=== PATIENT | male | born 1935 | race Caucasian/White ===

== ENCOUNTER 2023-05-10 17:57 | Emergency (ER) | payer OTHER, SELFPAY ==
[2023-05-10 18:01] VITALS: BP 138/76
--- NOTE | 2023-05-10 18:47 | ED.GENMED ---
History of Present Illness
General
Chief Complaint: Skin Surface Trauma
Source: patient, spouse and family
Time Seen by Provider: 05/10/23 18:10
Travel History
Have you had any contact with someone who has COVID-19?: No
Do you have any symptoms of coronavirus? Fever > 100 degrees, chills, cough, shortness of breath, sore throat, loss of taste or smell, muscle aches, or headache?: No
History of Present Illness
History of Present Illness:
88-year-old male presenting to the emergency department for evaluation after he was walking outside and excellently tripped on a curb falling onto his right arm and striking the right side of his head on the ground. Patient sustained multiple skin
tears to the right arm and hand as well as a small abrasion to the right temporal region there was no reported loss consciousness, vomiting, visual changes or any other injury sustained. Patient was able to ambulate following the fall. Patient
does not use any anticoagulants. Unknown last tetanus vaccine.
Past History
Past History
ED Past Medical History: Other ([place], Dementia)
ED Past Surgical History: Cardiac (Aortic bypass 1994) and Other (Hernia, Aortic bypass, Partial Thyroidectomy)
Social History
Tobacco: Former smoker
Alcohol: None
Drug: None
Personal:
Living: with family
Employment: Retired
Review of Systems
Review of Systems
All Other Systems: ROS reviewed and negative except as documented in HPI and ROS
Phy Exam
Physical Exam
Physical Exam:
GENERAL: Alert , in no apparent distress
EYE: conjunctiva clear
Head: See skin exam
NECK: Supple, no midline tenderness
ENT: mmm.
LUNGS: no acute respiratory distress
NEUROLOGICAL: Alert and oriented
SKIN: Warm and dry, multiple skin tears along the right forearm with the largest being the most proximal area measuring approximately 6 cm in size, curvilinear, mild oozing but no active bleeding. 2 cm skin tear mid forearm with inability to
approximate the skin edges, 1-1/2 cm skin tear along the ulnar surface/hypothenar eminence of the hand with skin edges mostly approximated. There is also a V shaped skin tear right temporal region without any active bleeding measuring approximately
7 mm in size
MUSCULOSKELETAL: well perfused.
PSYCH: Normal and appropriate interaction.
Scores
Heart Failure Risk
Heart Failure Risk Score: Not Applicable
Heart Score for Chest Pain Patients
STEMI patient?: Not applicable
Withdrawal Assessment of Alcohol
Withdrawal Assessment Completed?: Not applicable
Course
Orders/Labs/Results
Orders:
Orders
05/10/23 18:15
CT Head W/o Iv Contrast Urgent
Comment:
Reason For Exam: fall, head strike
05/10/23 18:16
Tetanus/Diphth/Acelpertussis [Adacel] 0.5 ml IM .ONCE ONE
05/10/23 19:00
CR Forearm - Right 2 View Urgent
Comment:
Reason For Exam: fall, multiple skin tears
Vital Signs
Initial and Last Documented VS:
Initial Vital Signs
Pulse Resp BP Pulse Ox
72 18 138/76 100
05/10/23 18:01 05/10/23 18:01 05/10/23 18:01 05/10/23 18:01
Last Documented Vital Signs
Pulse Resp BP Pulse Ox
72 18 138/76 100
05/10/23 18:01 05/10/23 18:01 05/10/23 18:01 05/10/23 18:01
Procedures
Laceration Closure
Right Forearm:
Status of Wound: clean
Size of Wound in cm: 9
Description of Wound Edges: sharp, surrounded by abrasion and macerated
Preparation: cleaned with saline
Revision/Debridement: minor revision
Type of Closure: Dermabond-skin glue and other (steri-strips)
Additional information:
Total length of all wounds measured approximately 9 cm
MDM/Problems Addressed
Differential Diagnosis Includes:
Accidental trip and fall, multiple skin tears, intracranial bleeding, calvarial fracture
MDM/Problems Addressed:
88-year-old male presenting emergency department for evaluation following an accidental trip and fall approximately 30 minutes prior to arrival to the emergency department. Skin tears will require repair with Steri-Strips and Dermabond. Will
obtain CT scan of the head given the reported head trauma. Will also order x-ray at the request of family of the right forearm. Will update tetanus. Anticipate discharge home pending imaging studies.
*Radiology
Radiology exam reviewed: preliminary read by ED provider (No fracture of the right forearm) and radiology read reviewed
*Pulse Oximetry
Patient hypoxic: no
*Critical Care Note
Total Time (30-74mins, 75-104mins- exclusive of procedures): Not Applicable
Patient Management
Escalation/DeEscalation of care consider admission/obs:
Patient's imaging is unremarkable for any acute pathologies. They were provided with information for wound care center. Aware of return precautions emergency department. Otherwise stable for discharge home.
ED Attending Note
-
Portions of this chart may have been created with voice recognition software.� Occasional wrong word or��sound alike� substitutions may have occurred due to the inherent limitations of voice recognition software.
Discharge Plan
Departure
Patient Disposition: Home (Routine Discharge)
Date of Disposition: 05/10/23
Time of Disposition: 20:00
Patient with high blood pressure during this ER visit?: No
Discharge Problem:
Accidental fall, Skin tear of right forearm without complication, skin tear face
Instructions: [facility]
Prescriptions:
No Action
simvastatin 40 MG tablet
40 mg PO DAILY
doxazosin 2 MG tablet
2 mg PO DAILY
silodosin [Rapaflo] 8 MG capsule
8 mg PO DAILY
Ibuprofen
3 tab PO PRN (Reason: pain)
Referrals:
[facility] [Outside]
Hany Servin MD [Family Provider] -
Interventions
Interventions:
*Risk Screen - Suicide Last Done: 05/10/23 19:29
*General Assessment Last Done: 05/10/23 19:29
*Neglect/Abuse Screening Last Done: 05/10/23 19:29
ED- Fall Risk Assessment Last Done: 05/10/23 19:29
*ED COVID-19 Vaccine History Last Done: 05/10/23 19:29
ED-Musculoskeletal Assessment Last Done: 05/10/23 19:29
ED- Neurological Assessment Last Done: 05/10/23 19:29
ED-Skin Assessment Last Done: 05/10/23 19:35
[2023-05-10 19:29] VITALS: BMI 22.6
[2023-05-10] MEDS: ADACEL 0.5 ML IM (19:35)
[2023-05-10 20:10] VITALS: BP 129/78
== END 2023-05-10 22:55 | disposition home or self-care (01) ==
LOC: EMR 17:57
PROVIDERS: EMERGENCY PHYSICIAN Emergency Medicine; FAMILY PHYSICIAN Internal Medicine
DX: S51.811A Laceration without foreign body of right forearm, initial encounter (principal); S01.81XA Laceration without foreign body of other part of head, initial encounter; W01.0XXA Fall on same level from slipping, tripping and stumbling without subsequent striking against object, initial encounter; Z23 Encounter for immunization
CPT/HCPCS: 99284; 90471; 12004; 70450; 73090; 90715

== ENCOUNTER 2023-06-01 12:25 | Emergency (ER) | payer OTHER, SELFPAY ==
[2023-06-01 12:51] VITALS: BP 119/56
[2023-06-01 13:07] LABS: % Basophils 0.1 % (0-2); % Eosinophils 0.1 % (0-6); % Immature Granulocytes 0.4 % (0-0.5); % Lymphocytes 11.4 % (20.5-51.1); % Monocytes 6.6 % (1.7-9.3); % Neutrophils 81.4 % (42.2-75.2); Absolute Immature Granulocytes 0.1 10^3/uL (0-0.05); Absolute Lymphocytes 1.8 10^3/uL (1.2-3.4); Absolute Neutrophils 12.8 10^3/uL (1.4-6.5); Hematocrit 34.5 % (39.0-52.0); Hemoglobin 11.8 g/dL (13.0-18.0); Mean Corp Hgb Conc. 34.2 g/dL (33.0-37.0); Mean Corpuscular Hgb 31.6 pg (27.0-31.0); Mean Corpuscular Volume 92.2 fL (80.0-94.0); Mean Platelet Volume 9.4 fL (7.4-10.4); Nucleated Red Blood Cells % 0 % (-); Platelet Count 205 10^3/uL (130-400); Red Blood Cell Count 3.74 10^6/uL (4.70-6.10); Red Cell Dist. Width 12.8 % (11.5-14.5); White Blood Cell Count 15.7 10^3/uL (4.8-10.8)
[2023-06-01 13:20] LABS: ALT (SGPT) 15 U/L (0-50); AST (SGOT) 17 U/L (17-59); Albumin 3.8 g/dl (3.5-5.0); Alkaline Phosphatase 85 U/L (38-126); Blood Urea Nitrogen 44 mg/dl (9-20); Calcium 8.7 mg/dl (8.4-10.2); Carbon Dioxide 23 mmol/L (22-30); Chloride 106 mmol/L (98-107); Glucose 113 mg/dl (70-99); Potassium 4.2 mmol/L (3.5-5.1); Sodium 135 mmol/L (135-145); Total Bilirubin 1.2 mg/dl (0.2-1.3); Total Protein 6.2 g/dl (6.3-8.2); eGFR 44.23
--- NOTE | 2023-06-01 15:27 | ED.GENMED ---
History of Present Illness
General
Chief Complaint: Skin Problem
Source: patient, spouse and family
Exam Limitations: none
Time Seen by Provider: 06/01/23 14:31
Nursing documentation reviewed up to this point in time: agreed with
Travel History
Have you had any contact with someone who has COVID-19?: No
Do you have any symptoms of coronavirus? Fever > 100 degrees, chills, cough, shortness of breath, sore throat, loss of taste or smell, muscle aches, or headache?: No
History of Present Illness
History of Present Illness:
Patient with history of dementia, presents to ED after visiting nurse noted worsening, nonhealing skin tear as a result of mechanical fall 2 weeks ago. In addition, spouse felt as though patient appeared to be confused this morning, which now has
resolved. Patient himself has no complaints. Denies fever. Denies vomiting. Denies loss of sensation or weakness. Denies increased pain.
Past History
Past History
ED Past Medical History: Other (Guillian [place], Dementia)
ED Past Surgical History: Cardiac (Aortic bypass 1994) and Other (Hernia, Aortic bypass, Partial Thyroidectomy)
Social History
Tobacco: Former smoker
Alcohol: None
Drug: None
Personal:
Living: with family
Employment: Retired
Review of Systems
Review of Systems
Allergies reviewed?: Yes
Unable to obtain full review of systems at this time due to: dementia
All Other Systems: Not applicable
Phy Exam
Physical Exam
Physical Exam:
Physical Exam
General: no apparent distress, not acutely ill. afebrile
Head: nc/at. eomi
Neuro: alert and oriented. no focal neurological deficits
Skin: an approx 2cm diameter skin tear/superficial abrasion noted over right mid forearm without swelling/erythema/ecchymosis/warmth.
Psychiatric: well kept. interactive and cooperative
Extremities: no edema.
Course
Orders/Labs/Results
Orders:
Orders
06/01/23 13:00
CMP [Comprehensive Metabolic Panel] Urgent
Complete Blood Count/With Diff Urgent
Abnormal Lab Results
06/01/23
13:00
WBC 15.7 H 10^3/uL
(4.8-10.8)
RBC 3.74 L 10^6/uL
(4.70-6.10)
Hgb 11.8 L g/dL
(13.0-18.0)
Hct 34.5 L %
(39.0-52.0)
MCH 31.6 H pg
(27.0-31.0)
Abs Immat Gran (auto) 0.1 H 10^3/uL
(0-0.05)
Absolute Neuts (auto) 12.8 H 10^3/uL
(1.4-6.5)
Absolute Monos (auto) 1.0 H 10^3/uL
(0.1-0.6)
Neutrophils % 81.4 H %
(42.2-75.2)
Lymphocytes % 11.4 L %
(20.5-51.1)
BUN 44 H mg/dl
(9-20)
Creatinine 1.5 H mg/dL
(0.7-1.3)
Glucose 113 H mg/dl
(70-99)
Total Protein 6.2 L g/dl
(6.3-8.2)
06/01/23 13:00
06/01/23 13:00
Vital Signs
Initial and Last Documented VS:
Initial Vital Signs
Temp Pulse Resp BP Pulse Ox
98.0 F 84 18 119/56 99
06/01/23 12:51 06/01/23 12:51 06/01/23 12:51 06/01/23 12:51 06/01/23 12:51
Last Documented Vital Signs
Temp Pulse Resp BP Pulse Ox
98.0 F 70 18 102/60 97
06/01/23 12:51 06/01/23 15:38 06/01/23 15:38 06/01/23 15:38 06/01/23 15:38
MDM/Problems Addressed
MDM/Problems Addressed:
History and exam consistent with ongoing right forearm wound from accidental fall 2 weeks ago. Further open wound noted, which is superficial, there is no surrounding erythema or purulent drainage. Patient likely with slow healing wound. However,
given duration of ongoing symptoms, along with mild leukocytosis, difficult to exclude potential superimposed cellulitis. As such, decision made to prescribe Keflex x 1 week along with PCP follow-up as an outpatient. Patient also still has
visiting nurse who will come and evaluate patient at home. Patient's mild confusion noted when he woke up this morning, likely secondary to dehydration, as suggested by increased BUN to creatinine ratio, as patient and family admit the patient does
not drink any water during the day. Advised increased fluid administration at home along with antibiotics, and PCP follow-up as an outpatient, including repeat blood work in 1 to 2 weeks. Patient and family express understanding at time of
discharge.
*Critical Care Note
Total Time (30-74mins, 75-104mins- exclusive of procedures): Not Applicable
ED Attending Note
-
Portions of this chart may have been created with voice recognition software.� Occasional wrong word or��sound alike� substitutions may have occurred due to the inherent limitations of voice recognition software.
Discharge Plan
Departure
Patient Disposition: Home (Routine Discharge)
Date of Disposition: 06/01/23
Time of Disposition: 15:27
Patient with high blood pressure during this ER visit?: No
Condition: Good
Discharge Problem:
Infected skin tear, Acute kidney injury, Dehydration
Instructions: Dehydration, Adult (DC), Wound Care (DC), Acute Kidney Injury (DC)
Prescriptions:
New
cephalexin 500 mg capsule
500 mg PO Q8H Qty: 21 0RF
No Action
simvastatin 40 MG tablet
40 mg PO DAILY
doxazosin 2 MG tablet
2 mg PO DAILY
silodosin [Rapaflo] 8 MG capsule
8 mg PO DAILY
Ibuprofen
3 tab PO PRN (Reason: pain)
Referrals:
Hany Servin MD [Family Provider] -
Activity Restrictions/Additional Instructions:
As discussed, please follow-up with your primary care physician for reevaluation, including repeat blood work in 1 to 2 weeks. Until then, please continue take prescribed antibiotics and increased fluid intake at home. Your prescription has been
sent electronically to [facility] pharmacy in [place].
Interventions
Interventions:
*Risk Screen - Suicide Last Done: 06/01/23 15:50
*General Assessment Last Done: 06/01/23 15:50
*Neglect/Abuse Screening Last Done: 06/01/23 15:50
ED- Fall Risk Assessment Last Done: 06/01/23 15:51
*ED COVID-19 Vaccine History Last Done: 06/01/23 12:51
*Nursing Disposition Last Done: 06/01/23 15:51
ED-Skin Assessment Last Done: 06/01/23 15:51
Discharge Date and Time
Discharge Date/Time: 06/01/23 15:52
Print Language: UGANDAN
[2023-06-01 15:38] VITALS: BP 102/60
== END 2023-06-01 15:52 | disposition home or self-care (01) ==
LOC: EMR 12:25
PROVIDERS: Emergency Medicine; EMERGENCY PHYSICIAN Emergency Medicine; FAMILY PHYSICIAN Internal Medicine
DX: L08.89 Other specified local infections of the skin and subcutaneous tissue (principal); N17.9 Acute kidney failure, unspecified; E86.0 Dehydration; F03.90 Unspecified dementia, unspecified severity, without behavioral disturbance, psychotic disturbance, mood disturbance, and anxiety; Z87.891 Personal history of nicotine dependence
CPT/HCPCS: 99283; 80053; 85025